=== PATIENT | female | born 1985 | race Caucasian/White ===

== ENCOUNTER → 2018-12-31 | Outpatient (REF) | LOC: M LAB LCGH 09:46 | PROVIDERS: ATTEND Family Medicine | DX: Z01.419 Encounter for gynecological examination (general) (routine) without abnormal findings (principal) ==

== ENCOUNTER → 2020-04-15 | Outpatient (REF) | payer BC ==
[2020-05-13 22:16] LABS: APPEARANCE, URINE HAZY (CLEAR); BACTERIA, URINE AUTO NEGATIVE (NEGATIVE); BILIRUBIN, URINE AUTO NEGATIVE (NEGATIVE); BLOOD, URINE BLOOD NEGATIVE (NEGATIVE); COLOR, URINE YELLOW (YELLOW); GLUCOSE, URINE (UA) AUTO NEGATIVE (NEGATIVE); KETONE, URINE AUTO NEGATIVE (NEGATIVE); LEUKOCYTE ESTERASE, URINE AUTO NEGATIVE (NEGATIVE); MUCUS, URINE SMALL (NEGATIVE); NITRITE, URINE AUTO NEGATIVE (NEGATIVE); PROTEIN, URINE AUTO NEGATIVE (NEGATIVE); RBC, URINE AUTO 1 /HPF (0-3); SPECIFIC GRAVITY URINE AUTO 1.017 (1.002-1.035); SQUAMOUS EPITHELIAL CELL UR AU 8 /HPF (0-6); UROBILINOGEN, URINE AUTO 0.2 mg/dL (0.0-2.0); WBC, URINE AUTO 2 /HPF (0-3)
== END ==
LOC: M SMT 15:45
PROVIDERS: ATTEND Nurse Practitioner Family
DX: N39.0 Urinary tract infection, site not specified (principal)

== ENCOUNTER 2022-04-13 09:34 | Day surgery (SDC) | payer BC ==
[~2022-04-13] VITALS: Ht 162.6 cm; Wt 118.0 kg
[~2022-04-13 09:34] MED LIST: ALBU2.5V10 NEB; ALBU8.5H INH; BUSP10TA PO; CIME-49 PO; LISI5TAB11 PO; PANT40TA29 PO; RIZA10TA2 PO; SUCR1TAB56 PO; VITAD400CA FT
[2022-04-13] MEDS ORDERED: OXYC1TAB23 PO (10:00)
[2022-04-13] MEDS ORDERED: ONDA-83 PO (10:00)
[2022-04-13] MEDS ORDERED: TAMS1CAP17 PO (10:00)
[2022-04-13] MEDS ORDERED: NS 1,000 ML IV ONE (12:40)
[2022-04-13] MEDS ORDERED: ONDANSETRON 4MG 2ML VIAL IV ONE (12:40)
[2022-04-13] MEDS ORDERED: KETOROLAC 30 MG/ML 1ML VIAL IV ONE ×2 (12:40→16:00)
[2022-04-13 13:04] LABS: BASO # 0.2 10^3/uL (0.0-0.2); BASO % 1.7 % (0.0-1.0); EOS # 0.4 10^3/uL (0.0-0.5); EOS % 3.4 % (0.0-3.0); HEMATOCRIT 42.2 % (36.0-47.0); HEMOGLOBIN 14.3 g/dl (12.0-15.5); LYMPH # 3.2 10^3/uL (1.5-5.0); LYMPH % 30.8 % (24.0-44.0); MEAN CORPUSCULAR HEMOGLOBIN 30.6 pg (27.0-33.0); MEAN CORPUSCULAR HGB CONC 33.9 g/dl (32.0-36.5); MEAN CORPUSCULAR VOLUME 90.4 fl (80.0-96.0); MONO # 0.6 10^3/uL (0.0-0.8); MONO % 5.7 % (2.0-8.0); PLATELET COUNT, AUTOMATED 449 10^3/uL (150-450); RED BLOOD COUNT 4.67 10^6/uL (4.00-5.40); WHITE BLOOD COUNT 10.3 10^3/uL (4.0-10.0)
[2022-04-13 15:01] LABS: ALBUMIN 4.1 GM/DL (3.2-5.2); ALT/SGPT 35 U/L (12-78); BILIRUBIN,DIRECT 0.3 MG/DL (0.0-0.2); BILIRUBIN,TOTAL 1.3 MG/DL (0.2-1.0); BLOOD UREA NITROGEN 7 MG/DL (7-18); CALCIUM LEVEL 9.4 MG/DL (8.5-10.1); CARBON DIOXIDE LEVEL 25 MEQ/L (21-32); CHLORIDE LEVEL 107 MEQ/L (98-107); CREATININE FOR GFR 0.77 MG/DL (0.55-1.30); GLOMERULAR FILTRATION RATE > 60.0 (>60); GLUCOSE, FASTING 83 MG/DL (70-100); LIPASE 116 U/L (73-393); POTASSIUM SERUM 4.1 MEQ/L (3.5-5.1); SODIUM LEVEL 138 MEQ/L (136-145); TOTAL PROTEIN 8.1 GM/DL (6.4-8.2)
[2022-04-13 15:47] LABS: RSV AMPLIFICATION NEGATIVE (NEGATIVE)
[2022-04-13] MEDS ORDERED: D3 M1CAP2 PO (16:24)
[2022-04-13] MEDS ORDERED: HOME MED LIST COMPLETE! XX SCH (16:25)
[2022-04-13] MEDS ORDERED: ceFAZolin SOD 1 GM in D5W MINI-BAG PLUS 50 ML IV ONE (17:00)
[2022-04-13] MEDS ORDERED: ceFAZolin SOD 3 GM in IV 1 EA IV ONE (17:00)
[2022-04-13] MEDS ORDERED: ISOVUE-300 61% 50ML VIAL As Ordered ONE (17:08)
[2022-04-13] MEDS ORDERED: SCOPOLAMINE 1MG TRANSDERMAL PATCH TOP STA (17:17)
[2022-04-13] MEDS ORDERED: ceFAZolin SOD 2 GM in IV 1 EA IV ONE (17:30)
[2022-04-13] MEDS ORDERED: ceFAZolin 1GM VIAL (J0690 PER 500MG) As Ordered ONE (17:34)
[2022-04-13] MEDS ORDERED: ceFAZolin 2 GM/D5W 50 ML IV BAG (J0690 PER 500MG) As Ordered ONE (17:34)
[2022-04-13] MEDS ORDERED: LR 1,000 ML IV SCH (18:15)
[2022-04-13] MEDS ORDERED: ONDANSETRON 4MG 2ML VIAL IV PRN (18:15)
[2022-04-13] MEDS ORDERED: fentaNYL 100 MCG/2 ML INJECTION IV PRN (18:15)
[2022-04-13] MEDS ORDERED: oxyCODONE 5MG TAB PO PRN (18:15)
[2022-04-13] MEDS ORDERED: MORPHINE 2 MG/ML 1ML VIAL IV PRN (18:15)
[2022-04-13] MEDS ORDERED: LIDOCAINE 2% 100MG/5ML SDV (FOR ANES.) As Ordered ONE (18:21)
[2022-04-13] MEDS ORDERED: fentaNYL 100 MCG/2 ML INJECTION As Ordered ONE (18:21)
[2022-04-13] MEDS ORDERED: propofoL 200 MG/20 ML VIAL As Ordered ONE (18:21)
[2022-04-13] MEDS ORDERED: ONDANSETRON 4MG 2ML VIAL As Ordered ONE (18:21)
[2022-04-13] MEDS ORDERED: MIDAZOLAM INJ 2MG/2ML VIAL (J2250 PER 1MG) As Ordered ONE (18:21)
[2022-04-13] MEDS ORDERED: dexameTHASONE 4 MG/ML 1ML VIAL (J1100 PER 1MG) As Ordered ONE (18:21)
== END 2022-04-13 19:33 | disposition home or self-care (01) ==
LOC: M ED 09:34 → M SDC 16:30
PROVIDERS: ATTEND Urology
DX: N13.2 Hydronephrosis with renal and ureteral calculous obstruction (principal); J45.909 Unspecified asthma, uncomplicated; Z79.899 Other long term (current) drug therapy; I10 Essential (primary) hypertension
CPT/HCPCS: 36415; 52356; 74018; 76000; 80048; 80076; 81001; 82365; 83690; 85025; 87631; 96374; 96375; 96376; 99284; C1769; C1894; C2617; J0690; J1100; J1885; J2250; J2405; J3010; Q9967

== ENCOUNTER 2023-12-12 06:15 | Day surgery (SDC) | payer BC ==
[~2023-12-12] VITALS: Ht 162.6 cm; Wt 122.5 kg
[~2023-12-12 06:15] MED LIST changes: +ATIV1TAB10 PO; +D3 M1CAP2 PO; +HYDR1CAP25 PO; +ONDA-83 PO; +OXYC1TAB23 PO; +TAMS1CAP17 PO
[2023-12-12] MEDS ORDERED: LR 1,000 ML IV SCH ×2 (06:40→08:35)
[2023-12-12] MEDS ORDERED: dexmedeTOMIDine (4MCG/ML)200MCG/50ML BTL (PRECEDEX) As Ordered ONE (07:09)
[2023-12-12] MEDS ORDERED: PHENYLephrine 500MCG 5ML (100MCG/ML) SYRINGE As Ordered ONE (07:09)
[2023-12-12] MEDS ORDERED: propofoL 200 MG/20 ML VIAL As Ordered ONE (07:09)
[2023-12-12] MEDS ORDERED: KETOROLAC 60MG 2ML VIAL As Ordered ONE (07:09)
[2023-12-12] MEDS ORDERED: ePHEDrine SULFATE 25 MG/5 ML(5MG/ML) SYRINGE As Ordered ONE (07:09)
[2023-12-12] MEDS ORDERED: LIDOCAINE 2% 100MG/5ML SDV (FOR ANES.) As Ordered ONE (07:09)
[2023-12-12] MEDS ORDERED: ONDANSETRON 4MG 2ML VIAL As Ordered ONE (07:09)
[2023-12-12] MEDS ORDERED: MIDAZOLAM INJ 2MG/2ML VIAL As Ordered ONE (07:10)
[2023-12-12] MEDS ORDERED: fentaNYL 100 MCG/2 ML INJECTION As Ordered ONE (07:11)
[2023-12-12] MEDS ORDERED: ACETAMINOPHEN 1000MG 100ML IV BAG As Ordered ONE (07:48)
[2023-12-12] MEDS: SCOPOLAMINE 1MG TRANSDERMAL PATCH As Ordered ONE (07:50)
[2023-12-12] MEDS: ceFAZolin SOD 2 GM in IV 1 EA IV ONE (08:01)
[2023-12-12] MEDS: ISOVUE-300 61% 100ML VIAL As Ordered ONE (08:02)
[2023-12-12] MEDS ORDERED: fentaNYL 100 MCG/2 ML INJECTION IV PRN (08:35)
[2023-12-12] MEDS: oxyCODONE 5MG TAB PO PRN (08:54)
[2023-12-12] MEDS: HYDROMORPHONE HCL 0.5 MG/ 0.5 ML SYRINGE IV PRN (08:54)
[2023-12-12] MEDS: ONDANSETRON 4MG 2ML VIAL IV PRN (08:54)
[2023-12-12] MEDS ORDERED: PERCOCET 5MG/325MG TAB PO PRN (09:05)
[2023-12-12] MEDS: METOCLOPRAMIDE INJ 10MG/2ML VIAL IV ONE (09:36)
[2023-12-12 10:17] VITALS: BP 147/95; TEMP 98.5; O2SAT 96
== END 2023-12-12 10:25 | disposition home or self-care (01) ==
LOC: M SDC 06:15
PROVIDERS: ATTEND Urology
DX: N20.0 Calculus of kidney (principal); I10 Essential (primary) hypertension; Z79.899 Other long term (current) drug therapy; Z91.040 Latex allergy status
CPT/HCPCS: 52356; 76000; 82365; C1769; C1894; C2617; J0131; J0690; J1100; J1170; J1885; J2250; J2371; J2405; J2765; J3010; Q9967

== ENCOUNTER 2023-12-16 17:52 | Emergency (ER) | payer BC ==
[~2023-12-16] VITALS: Ht 162.6 cm; Wt 122.5 kg
[2023-12-16 19:10] LABS: HEMATOCRIT 45.1 % (36.0-47.0); HEMOGLOBIN 15.6 g/dl (12.0-15.5); MEAN CORPUSCULAR HEMOGLOBIN 30.6 pg (27.0-33.0); MEAN CORPUSCULAR VOLUME 88.6 fl (80.0-96.0); RED BLOOD COUNT 5.09 10^6/uL (4.00-5.40)
[2023-12-16 19:11] LABS: BASO # 0.2 10^3/uL (0.0-0.2); BASO % 1.1 % (0.0-1.0); EOS # 0.4 10^3/uL (0.0-0.5); EOS % 2.3 % (0.0-3.0); LYMPH # 4.3 10^3/uL (1.5-5.0); LYMPH % 27.2 % (24.0-44.0); MEAN CORPUSCULAR HGB CONC 34.6 g/dl (32.0-36.5); MONO # 1.1 10^3/uL (0.0-0.8); MONO % 7.1 % (2.0-8.0); NEUTROPHILS # 9.9 10^3/uL (1.5-8.5); NEUTROPHILS % 61.6 % (36.0-66.0); PLATELET COUNT, AUTOMATED 457 10^3/uL (150-450)
[2023-12-16 19:39] LABS: BLOOD UREA NITROGEN 13 MG/DL (9-23); CALCIUM LEVEL 9.2 MG/DL (8.5-10.1); CARBON DIOXIDE LEVEL 24 MMOL/L (20-31); CHLORIDE LEVEL 106 MMOL/L (98-107); GLOMERULAR FILTRATION RATE > 60.0 (>60); GLUCOSE, FASTING 91 MG/DL (60-100); POTASSIUM SERUM 4.7 MMOL/L (3.5-5.1); SODIUM LEVEL 137 MMOL/L (136-145)
[2023-12-16] MEDS ORDERED: ISOVUE-370 76% 100ML VIAL As Ordered ONE (19:46)
[2023-12-16] MEDS: ONDANSETRON 4MG 2ML VIAL IV ONE (19:50)
[2023-12-16] MEDS: MORPHINE 4 MG/ML 1ML VIAL IV ONE (19:50)
[2023-12-16] MEDS ORDERED: REGL10TA6 PO (21:56)
[2023-12-16] MEDS ORDERED: CEFP200T PO (21:56)
[2023-12-16] MEDS: cefTRIAXone SOD 1 GM in D5W MINI-BAG PLUS 50 ML IV ONE (22:12)
[2023-12-16] MEDS: traMADol 50 MG TAB (HOME DOSE PACK) PO ONE (22:13)
[2023-12-16] MEDS: NORCO 5/325MG TABLET (HOME DOSE PACK) PO ONE (22:14)
[2023-12-16 22:40] VITALS: BP 168/102; TEMP 97.5; O2SAT 98
== END 2023-12-16 22:50 | disposition home or self-care (01) ==
LOC: M ED 17:52
DX: R10.9 Unspecified abdominal pain (principal); N39.0 Urinary tract infection, site not specified; I10 Essential (primary) hypertension; J45.909 Unspecified asthma, uncomplicated; Z87.442 Personal history of urinary calculi; Z79.52 Long term (current) use of systemic steroids; Z79.811 Long term (current) use of aromatase inhibitors; Z79.810 Long term (current) use of selective estrogen receptor modulators (SERMs); Z79.899 Other long term (current) drug therapy; Z91.040 Latex allergy status
CPT/HCPCS: 74177; 80048; 81001; 83605; 85025; 87040; 87086; 96365; 96375; 99284; J0696; J2405; Q9967